=== PATIENT | female | born 1965 | race Caucasian/White ===

== ENCOUNTER 2023-06-10 10:47 | Observation (INO) | payer MEDICARE ==
[2023-06-10] MEDS ORDERED: SODIUM CHLORIDE 0.9% 1,000 ML IV STA (10:58)
[2023-06-10 11:15] LABS: Basophils # (A) 0.1 k/uL (0-0.2); Basophils % (A) 1 %; Eosinophils # (A) 0.8 k/uL (0-0.7); Eosinophils % (A) 9 %; HCT 47.3 % (34.0-46.0); Lymphocytes # (A) 2.7 k/uL (1.0-4.8); Lymphocytes % (A) 30 %; MCH 29.7 pg (25.0-35.0); MCHC 33.8 g/dL (31.0-37.0); MCV 88.1 fL (80.0-100.0); Mean Platelet Volume 7.9; Monocytes # (A) 0.4 k/uL (0-1.0); Monocytes % (A) 4 %; Neutrophils % (A) 55 %; Platelet Count 233 k/uL (150-450); RBC 5.37 m/uL (3.80-5.40); RDW 12.9 % (11.5-15.5); WBC 9.1 k/uL (3.8-10.6)
--- NOTE | 2023-06-10 11:21 | ED ---
General Adult HPI - General Chief complaint: Abdominal Pain Stated complaint: Abd Pain Time Seen by Provider: 06/10/23 10:49 Source: patient Mode of arrival: EMS Limitations: no limitations - History of Present Illness Initial comments: Dictation was produced using [employer] dictation software. please excuse any grammatical, word or spelling errors. Chief Complaint: 57-year-old female presents to the ER for nausea vomiting diarrhea History of Present Illness: 57-year-old female she has been having acute on chronic nausea vomiting diarrhea. She has history of dyslipidemia hypertension. She was seen by the specialist recently and had an x-ray and some prescriptions for some medications to alleviate her symptoms. States that her symptoms have been progressively worsening. She does complain of constitutional symptoms. Denies any abdominal pain. The ROS documented in this emergency department record has been reviewed and c onfirmed by me. Those systems with pertinent positive or negative responses have been documented in the HPI. All other systems are other negative and/or noncontributory. - Related Data Allergies Allergy/AdvReac Type Severity Reaction Status Date / Time Penicillins Allergy Rash/Hives Verified 06/10/23 10:57 Sulfa (Sulfonamide Allergy Rash/Hives Verified 06/10/23 10:57 Antibiotics) Review of Systems ROS Statement: Those systems with pertinent positive or pertinent negative responses have been documented in the HPI. ROS Other: All systems not noted in ROS Statement are negative. Past Medical History Past Medical History: Hyperlipidemia, Hypertension History of Any Multi-Drug Resistant Organisms: None Reported Past Surgical History: Cholecystectomy, Hernia Repair, Orthopedic Surgery Past Psychological History: No Psychological Hx Reported Smoking Status: Vaper Past Alcohol Use History: None Reported Past Drug Use History: None Reported General Exam - General Exam Comments Initial Comments: PHYSICAL EXAM: General Impression: Alert and oriented x3, not in acute distress HEENT: Normocephalic atraumatic, extra-ocular movements intact, pupils equal and reactive to light bilaterally, mucous membranes moist. Cardiovascular: Heart regular rate and rhythm Chest: Able to complete full sentences, no retractions, no tachypnea Abdomen: abdomen soft, non-tender, non-distended, no organomegaly Musculoskeletal: Pulses present and equal in all extremities, no peripheral edema Motor: no focal deficits noted Neurological: CN II-XII grossly intact, no focal motor or sensory deficits noted Skin: Intact with no visualized rashes Psych: Normal affect and mood Limitations: no limitations Course Vital Signs 06/10/23 06/10/23 10:51 10:56 Temperature 99.1 F Pulse Rate 69 65 Respiratory 20 20 Rate Blood Pressure 147/83 134/86 O2 Sat by Pulse 98 98 Oximetry Medical Decision Making - Medical Decision Making Was pt. sent in by a medical professional or institution (, PA, MOBILE HOME TECHNICIAN, urgent care, hospital, or [place] health care facility...) When possible be specific @ -No Did you speak to anyone other than the patient for history (EMS, parent, family, police, friend...)? What history was obtained from this source @ -No Did you review nursing and triage notes (agree or disagree)? Why? @ -I reviewed and agree with nursing and triage notes Were old charts reviewed (outside hosp., previous admission, EMS record, old EK G, old radiological studies, urgent care reports/EKG's, [place] health care facility records)? Report findings @ -No old charts were reviewed Differential Diagnosis (chest pain, altered mental status, abdominal pain women, abdominal pain men, vaginal bleeding, musculoskeletal, weakness, fever, dyspnea, syncope, headache, dizziness, GI bleed, back pain, seizure, CVA, palpatations, mental health)? @ -Differential Abdominal Pain Women: Appendicitis, Cholecystitis, diverticulosis, ischemic bowel, pancreatitis, hepatitis, UTI, gastroenteritis, AAA, incarcerated hernia, bowel obstruction, constipation, inflammatory bowel, hepatitis, peptic ulcer disease, splenic infarction, perforated viscus, vulvitis, ovarian torsion, PID, kidney stone, placenta abruption, this is not meant to be an all-inclusive list EKG interpreted by me (3pts min.). @ -My EKG interpretation: Ventricular rate 65, sinus rhythm,. 160, QRS 11, QTC 41. No CA prolongation, no QTC prolongation, no ST or T-wave changes noted. Overall, this EKG is unremarkable X-rays interpreted by me (1pt min.). @ -None done CT interpreted by me (1pt min.). @ -Computed tomography scan of the abdomen shows no acute processes U/S interpreted by me (1pt. min.). @ -None done What testing was considered but not performed or refused? (CT, X-rays, U/S, labs)? Why? @ -None What meds were considered but not given or refused? Why? @ -None Did you discuss the management of the patient with other professionals (professionals i.e. , PA, MOBILE HOME TECHNICIAN, lab, RT, psych nurse, bilingual social worker, property economist, teacher, aeronautical engineering officer, case operator)? Give summary @ -Discussed with Dr. Solo for admission Was smoking cessation discussed for >3mins.? @ -No Was critical care preformed (if so, how long)? @ -No Were there social determinants of health that impacted care today? How? (Homelessness, low income, unemployed, alcoholism, drug addiction, transportat ion, low edu. Level, literacy, decrease access to med. care, alf, rehab)? @ -No Was there de-escalation of care discussed even if they declined (Discuss DNR or withdrawal of care, Hospice)? DNR status @ -No What co-morbidities impacted this encounter? (DM, HTN, Smoking, COPD, CAD, Cancer, CVA, ARF, Chemo, Hep., AIDS, mental health diagnosis, sleep apnea, morbid obesity)? @ -None Was patient admitted / discharged? Hospital course, mention meds given and route, prescriptions, significant lab abnormalities, going to OR and other pertinent info. @ -57-year-old female presents to the emergency room for nausea and vomiting. Secured on chronic. Vital signs are stable. Laboratory evaluation is unremarkable. Imaging studies shows no obvious cause of patient's nausea and vomiting. Of note radiology read, and of mediastinal fullness. Disposition options are discussed with patient and she does not for comfortable being discharged given the progression and intensity of her symptoms. Patient given antiemetics so persistent symptoms. Patient be admitted to observation. Undiagnosed new problem with uncertain prognosis? @ -No Drug Therapy requiring intensive monitoring for toxicity (Heparin, Nitro, Insulin, Cardizem)? @ -No Were any procedures done? @ -No Diagnosis/symptom? Acute, or Chronic, or Acute on Chronic? Uncomplicated (without systemic symptoms) or Complicated (systemic symptoms)? @ -Intractable nausea Side effects of treatment? @ -No Exacerbation, Progression, or Severe Exacerbation? @ -No Poses a threat to life or bodily function? How? (Chest pain, USA, NC, pneumonia, PE, COPD, DKA, ARF, appy, cholecystitis, CVA, Diverticulitis, Homicidal, Suicidal, threat to staff... and all critical care pts) @ -No - Lab Data Result diagrams: 06/10/23 11:06 06/10/23 11:06 Lab Results 06/10/23 06/10/23 06/10/23 Range/Units 11:06 11:06 11:13 WBC 9.1 (3.8-10.6) k/uL RBC 5.37 (3.80-5.40) m/uL Hgb 16.0 (11.4-16.0) gm/dL Hct 47.3 H (34.0-46.0) % MCV 88.1 (80.0-100.0) fL MCH 29.7 (25.0-35.0) pg MCHC 33.8 (31.0-37.0) g/dL RDW 12.9 (11.5-15.5) % Plt Count 233 (150-450) k/uL MPV 7.9 Neutrophils % 55 % Lymphocytes % 30 % Monocytes % 4 % Eosinophils % 9 % Basophils % 1 % Neutrophils # 5.0 (1.3-7.7) k/uL Lymphocytes # 2.7 (1.0-4.8) k/uL Monocytes # 0.4 (0-1.0) k/uL Eosinophils # 0.8 H (0-0.7) k/uL Basophils # 0.1 (0-0.2) k/uL Sodium 141 (137-145) mmol/L Potassium 4.5 (3.5-5.1) mmol/L Chloride 106 (98-107) mmol/L Carbon Dioxide 24 (22-30) mmol/L Anion Gap 11 mmol/L BUN 15 (7-17) mg/dL Creatinine 0.85 (0.52-1.04) mg/dL Est GFR (CKD-EPI)AfAm 87 (>60 ml/min/1.73 sqM) Est GFR (CKD-EPI)NonAf 76 (>60 ml/min/1.73 sqM) Glucose 100 H (74-99) mg/dL Calcium 10.4 H (8.4-10.2) mg/dL Total Bilirubin 0.6 (0.2-1.3) mg/dL AST 41 H (14-36) U/L ALT 42 H (4-34) U/L Alkaline Phosphatase 99 (38-126) U/L Total Protein 8.3 H (6.3-8.2) g/dL Albumin 4.9 (3.5-5.0) g/dL Lipase 76 (23-300) U/L Urine Color Yellow Urine Appearance Clear (Clear) Urine pH 7.5 (5.0-8.0) Ur Specific Hyder 1.015 (1.001-1.035) Urine Protein Trace H (Negative) Urine Glucose (UA) Negative (Negative) Urine Ketones Negative (Negative) Urine Blood Trace H (Negative) Urine Nitrite Negative (Negative) Urine Bilirubin Negative (Negative) Urine Urobilinogen <2.0 (<2.0) mg/dL Ur Leukocyte Esterase Negative (Negative) Urine RBC 6 H (0-5) /hpf Urine WBC 2 (0-5) /hpf Ur Squamous Epith Cells 1 (0-4) /hpf Urine Mucus Rare H (None) /hpf Disposition Clinical Impression: Intractable nausea and vomiting Disposition: ADMITTED IP TO THIS [facility] Condition: Fair Referrals: Nonstaff,Physician [Primary Care Provider] - 1-2 days Decision Time: 12:30
[2023-06-10 11:33] LABS: Appearance,Urine Clear (Clear); Bilirubin,Urine Negative (Negative); Blood,Urine Trace (Negative); Color,Urine Yellow; Glucose,Urine (UA) Negative (Negative); Ketones,Urine Negative (Negative); Leukocyte Esterase,Urine Negative (Negative); Mucus,Urine Rare /hpf; Nitrite,Urine Negative (Negative); PH, Urine 7.5 (5.0-8.0); Protein,Urine Trace (Negative); RBC,Urine 6 /hpf (0-5); Specific Gravity,Urine 1.015 (1.001-1.035); Squamous Epithelial Cell,Urine 1 /hpf (0-4); Urobilinogen,Urine <2.0 mg/dL (<2.0); WBC,Urine 2 /hpf (0-5)
[2023-06-10] MEDS ORDERED: ONDANSETRON 4 MG/2 ML VIAL IVP STA (11:33)
[2023-06-10 11:40] LABS: ALT 42 U/L (4-34); AST 41 U/L (14-36); African American GFR (CKD) 87 (>60 ml/min/1.73 sqM); Albumin 4.9 g/dL (3.5-5.0); Alkaline Phosphatase 99 U/L (38-126); Anion Gap 11 mmol/L; Blood Urea Nitrogen 15 mg/dL (7-17); Calcium 10.4 mg/dL (8.4-10.2); Carbon Dioxide 24 mmol/L (22-30); Chloride 106 mmol/L (98-107); Glucose 100 mg/dL (74-99); Lipase 76 U/L (23-300); Non-African American GFR(CKD) 76 (>60 ml/min/1.73 sqM); Potassium 4.5 mmol/L (3.5-5.1); Sodium 141 mmol/L (137-145); Total Bilirubin 0.6 mg/dL (0.2-1.3); Total Protein 8.3 g/dL (6.3-8.2)
--- NOTE | 2023-06-10 12:25 | CT ---
EXAMINATION TYPE: CT abdomen pelvis w con CT DLP: 1593.4 mGycm, Automated exposure control for dose reduction was used. DATE OF EXAM: 06/10/2023 12:15 PM COMPARISON: None CLINICAL INDICATION:Female, 57 years old with history of abdominal pain; nausea, vomiting, diarrhea TECHNIQUE: Axial CT of the abdomen and pelvis. Sagittal and coronal reformats were created on a [employer] workstation. Contrast used:100 mL of Isovue 300 with IV Contrast, (none if empty) Oral contrast used: without Oral Contrast (none if empty) FINDINGS: LOWER CHEST: There is indeterminate fullness within the right pulmonary hilum and subcarinal region w hich is only partially visualized. Exact structure/etiology uncertain. ABDOMEN LIVER: Diffusely hypoattenuating parenchyma. GALLBLADDER AND BILE DUCTS: The gallbladder is surgically absent. PANCREAS: Unremarkable. SPLEEN: Unremarkable. ADRENAL GLANDS: Unremarkable. KIDNEYS AND URETERS: Bilateral simple appearing renal cysts. No evidence of hydronephrosis or renal c alculus. The ureters are unremarkable. PELVIS BLADDER: Unremarkable REPRODUCTIVE: Unremarkable. ABDOMEN & PELVIS STOMACH AND BOWEL: No evidence of bowel obstruction. Scattered colonic diverticula. PERITONEUM/RETROPERITONEUM: No evidence of pneumoperitoneum or free fluid. VASCULATURE: No evidence of aortic aneurysm. MUSCULOSKELETAL: No acute osseous abnormalities. Mild disc degeneration changes are present throughou t the thoracolumbar spine. LYMPH NODES: No gross evidence for lymphadenopathy. SOFT TISSUE/ABDOMINAL WALL: Unremarkable IMPRESSION: 1. No evidence for acute abdominal process. No evidence for bowel obstruction. 2. Right pulmonary hilum and subcarinal fullness partially visualized. Consider CT chest with IV con trast for complete evaluation of the lungs throughout underlying lymphadenopathy. 3. Hepatic steatosis. 4. Colonic diverticulosis.
[2023-06-10] MEDS ORDERED: NALOXONE 0.4 MG/ML 1 ML VIAL IV PRN (12:46)
[2023-06-10] MEDS ORDERED: ONDANSETRON 4 MG/2 ML VIAL IVP PRN (12:46)
[2023-06-10] MEDS ORDERED: KETOROLAC 15 MG/ML 1 ML VIAL IVP STA (13:28)
[2023-06-10] MEDS: SODIUM CHLORIDE 0.9% 1,000 ML IV SCH (13:34)
[2023-06-10] MEDS ORDERED: RX INFO: IV CONTRAST WAS GIVEN 1 EACH MISC MISCELLANE PRN (15:51)
[2023-06-10] MEDS ORDERED: ONDANSETRON 4 MG TAB PO PRN (15:52)
[2023-06-10 16:36] LABS: ALT 38 U/L (4-34); AST 37 U/L (14-36); African American GFR (CKD) >90 (>60 ml/min/1.73 sqM); Albumin 4.1 g/dL (3.5-5.0); Albumin/Globulin Ratio 1.4; Alkaline Phosphatase 87 U/L (38-126); Anion Gap 6 mmol/L; Blood Urea Nitrogen 12 mg/dL (7-17); Calcium 9.2 mg/dL (8.4-10.2); Carbon Dioxide 25 mmol/L (22-30); Chloride 107 mmol/L (98-107); Glucose 87 mg/dL (74-99); Non-African American GFR(CKD) 80 (>60 ml/min/1.73 sqM); Potassium 4.1 mmol/L (3.5-5.1); Sodium 138 mmol/L (137-145); Total Bilirubin 0.5 mg/dL (0.2-1.3); Total Protein 7.1 g/dL (6.3-8.2)
[2023-06-10] MEDS ORDERED: RIFAXIMIN 550 MG TABLET PO SCH (17:00)
[2023-06-10] MEDS ORDERED: PROCHLORPERAZINE INJ 10 MG/2 ML VIAL IVP PRN (17:16)
--- NOTE | 2023-06-10 17:18 | P.HPIM ---
History of Present Illness H&P Date: 06/10/23 Chief Complaint: Nausea, vomiting 57-year-old woman with medical history of bipolar disorder, marijuana use, nicotine use, hypothyroidism, hypertension presented for evaluation of nausea, vomiting, diarrhea. Patient says that she's had symptoms of the last 6 months starting with tenesmus and diarrhea, but over the last week she started to develop increased nausea, vomiting. Her emesis is mostly bilious. She is able to eat food intermittently, but now is up to vomiting 3 times a day. She's had nausea for approximately 2 months, has been treating this with marijuana use. Notably, her nausea started prior to her marijuana use. Her only medication changes in the last 4 months included the addition of 2 bipolar disease medications including asenapine and lamotrigine. She denies fevers, chills, chest pain, palpitations, syncope, presyncope, dyspnea, abdominal pain, constipation, dysuria, dyschezia, numbness/weakness of extremities. She does report cough with sputum production which is predominantly white. In the emergency room, patient was afebrile, 147/83, heart rate 69, 98% on room air. CBC is unremarkable. Basic metabolic panel is unremarkable. Liver function test show mild elevation of AST/ALT to 41/42, elevation of total protein to 8.3. UA shows trace protein, trace blood, 6 red blood cells. Lipase was 76. Repeat BMP demonstrated improvement of calcium from 10.4-9.2, AST of 37, ALT of 38, total protein of 7.1. Abdomen/pelvis CT showed no evidence for an acute abdominal process, did show hepatic steatosis and colonic diverticulosis, as well as right pulmonary hilum and subcarinal fullness partially visualized. EKG shows normal sinus rhythm with normal axis, no evidence of ischemia. Case was discussed the emergency room provider incision was made to admit the patient to observation for nausea. All Systems reviewed and pertinent positives and negatives noted in HPI, all other symptoms are negative Gen: in no apparent distress, resting comfortably in bed Eyes: PERRL, no scleral injection or icterus HENT: normocephalic, atraumatic, good hearing acuity, moist mucous membranes Neck: no tracheal deviation, full range of motion Resp: good air exchange, breathing comfortably with no accessory muscle use, no tactile fremitus, clear to auscultation bilaterally CVS: good distal perfusion x 4, no pitting edema, regular rate and rhythm without murmurs GI: soft, NTTP, ND, no hepatosplenomegaly : no suprapubic tenderness, no CVAT, isaacs catheter not present MSK: no clubbing, no cyanosis, no noted contractures of extremities Skin: no noted rashes, petechiae; temperature of skin is appropriate Neuro: moving all extremities without signs of weakness, CN II-XII intact Psych: cooperative, euthymic mood, insight and judgment intact Labs and imaging as above Assessment: Nausea, vomiting, diarrhea Cough with sputum production Bipolar disorder Hypothyroidism Hypertension Plan: Vital signs reviewed and noted in the HPI Lab work reviewed and noted in the HPI EKG and CXR are personally interpreted and noted in the HPI Case was discussed with the Emergency Room provider and decision was made to admit the patient for nausea Nausea control: 4 mg Zofran when necessary every 4 hours IV for nausea, Compazine 10 mg IV push every 6 hours when necessary IV fluids: Normal saline at 75 mL per hour Obtain CT of the chest with IV contrast Resume patient's levothyroxine, amlodipine, saphris, lamotrigine Stool culture, stool lactoferrin Patient is full code Past Medical History Past Medical History: Hyperlipidemia, Hypertension History of Any Multi-Drug Resistant Organisms: None Reported Past Surgical History: Cholecystectomy, Hernia Repair, Orthopedic Surgery Past Psychological History: No Psychological Hx Reported Smoking Status: Vaper Past Alcohol Use History: None Reported Past Drug Use History: None Reported Medications and Allergies Home Medications Medication Instructions Recorded Confirmed Type Asenapine Maleate [Saphris] 10 mg SUBLINGUAL BID 06/10/23 06/10/23 History Cholecalciferol [Vitamin D3 (25 25 mcg PO DAILY 06/10/23 06/10/23 History Mcg = 1000 Iu)] Cyanocobalamin (Vitamin B-12) 1,000 mcg PO DAILY 06/10/23 06/10/23 History [Vitamin B-12] Dicyclomine [Bentyl] 20 mg PO BID 06/10/23 06/10/23 History Levothyroxine Sodium [Synthroid] 125 mcg PO DAILY 06/10/23 06/10/23 History Multivitamins, Thera [Multivitamin 1 tab PO DAILY 06/10/23 06/10/23 History (formulary)] Ondansetron [Zofran] 4 mg PO Q6H PRN 06/10/23 06/10/23 History Rifaximin [Xifaxan] 550 mg PO TID 06/10/23 06/10/23 History amLODIPine [Norvasc] 5 mg PO DAILY 06/10/23 06/10/23 History lamoTRIgine [LaMICtal] 100 mg PO DAILY 06/10/23 06/10/23 History Allergies Allergy/AdvReac Type Severity Reaction Status Date / Time Penicillins Allergy Rash/Hives Verified 06/10/23 13:13 Sulfa (Sulfonamide Allergy Rash/Hives Verified 06/10/23 13:13 Antibiotics) Physical Exam Osteopathic Statement: *. No significant issues noted on an osteopathic structural exam other than those noted in the History and Physical/Consult. Vitals: Vital Signs Temp Pulse Resp BP Pulse Ox 06/10/23 16:15 65 16 140/68 98 06/10/23 15:00 65 16 132/89 98 06/10/23 13:35 67 20 137/89 98 06/10/23 10:56 65 20 134/86 98 06/10/23 10:51 99.1 F 69 20 147/83 98 Intake and Output 06/10/23 06/10/23 06/10/23 06:59 14:59 22:59 Other: Weight 97.522 kg Results CBC & Chem 7: 06/10/23 11:06 06/10/23 16:18 Labs: Abnormal Lab Results - Last 24 Hours (Table) 06/10/23 06/10/23 06/10/23 Range/Units 11:06 11:06 11:13 Hct 47.3 H (34.0-46.0) % Eosinophils # 0.8 H (0-0.7) k/uL Glucose 100 H (74-99) mg/dL Calcium 10.4 H (8.4-10.2) mg/dL AST 41 H (14-36) U/L ALT 42 H (4-34) U/L Total Protein 8.3 H (6.3-8.2) g/dL Urine Protein Trace H (Negative) Urine Blood Trace H (Negative) Urine RBC 6 H (0-5) /hpf Urine Mucus Rare H (None) /hpf 09/05/23 Range/Units 16:18 Hct (34.0-46.0) % Eosinophils # (0-0.7) k/uL Glucose (74-99) mg/dL Calcium (8.4-10.2) mg/dL AST 37 H (14-36) U/L ALT 38 H (4-34) U/L Total Protein (6.3-8.2) g/dL Urine Protein (Negative) Urine Blood (Negative) Urine RBC (0-5) /hpf Urine Mucus (None) /hpf
--- NOTE | 2023-06-10 17:24 | CT ---
EXAMINATION TYPE: CT chest w con DATE OF EXAM: 06/10/2023 COMPARISON: None HISTORY: 57-year-old female mediastinal mass TECHNIQUE: Contiguous axial scanning of the chest after the administration of 100 mL of Isovue 300. Coronal/sagittal reconstructions performed. CT DLP: 550.1mGycm. Automatic exposure control utilized for a dose reduction. FINDINGS: The heart is normal size. There is a small pericardial effusion measuring up to 9 mm thick. Aorta normal caliber with a short vessel branching anatomy. There is mediastinal lymphadenopathy measuring up to 3.4 x 2.4 cm lower left paratracheal, 2.3 cm rig ht paratracheal, 3.1 cm AP window, 2.4 cm subcarinal, 2.4 cm left hilum, a 2.6 cm right hilum. Platelike thickening along the minor fissure probably perifissural atelectasis. Some mild groundglass change centrally in the right upper lobe, axially 24 is nonspecific and should be reassessed on follow-up. Some additional strandy areas of atelectasis in the lower lungs. Otherwise, no consolidation or pleural effusion. Visualized upper abdomen shows severe fatty infiltration of the liver. Abdomen pelvis Helms described on recent separate report. Bones: No osseous destructive process. [facility] within the lower thoracic spine. IMPRESSION: 1. Mediastinal and bilateral hilar lymphadenopathy measuring up to 3.4 cm. Differential consideration s include lymphoproliferative disorder, lymphoma, metastatic disease, sarcoidosis, granulomatous dise ase, atypical fungal/mycobacterial infections. Appropriate further evaluation and management recommen ded. 2. Some mild groundglass density centrally in the right upper lobe is nonspecific and could represent a small infectious/inflammatory focus. Reassess at a 3 month follow-up. 3. Small pericardial effusion measuring 9 mm thick. 4. Severe hepatic steatosis.
[2023-06-10] MEDS: ASENAPINE 5 MG TAB SUBLINGUAL SCH (20:26)
[2023-06-10] MEDS: DICYCLOMINE 20 MG TAB PO SCH (20:26)
--- NOTE | 2023-06-11 01:33 | P.CNPUL ---
History of Present Illness Consult date: 06/11/23 Requesting physician: Nisha Blum Reason for consult: abnormal CXR/CT Chief complaint: Nausea and vomiting History of present illness: I am seeing this patient in new consultation today 06/11/2023 for mediastinal and bilateral hilar lymphadenopathy incidentally found on chest CT. Patient is a 57-year-old white female with past medical history significant for hypertension, hyperlipidemia, hypothyroidism, bipolar, and is a ex-tobacco smoker. She recently moved to [place] from [place], and her PCP is a Dr. Alford out of [place]. Patient actually came to the emergency room ye complaining of nausea and vomiting that started over the last couple weeks. She has about 3 episodes of emesis per day, without relation to meals, denies any significant weight loss. Denies any hematemesis. Admits intermittent diarrhea that started last July. States that she had a colonoscopy 09/10/2022, which showed colitis. She denies any abdominal pain, bloody bowel movements. During the patient's workup for her nausea and vomiting, she had abdominal CT which did not show any significant acute intra- abdominal process. It did show right pulmonary hilar and subcarinal fullness. A follow-up chest CT showed mediastinal and bilateral hilar lymphadenopathy measuring up to 3.4 cm. There was also mild groundglass density within the right upper lobe, small pericardial effusion measuring 9 mm, and severe hepatic Steatosis. Possible differential includes lymphoproliferative disorders, lymphoma, metastatic disease, sarcoidosis, granulomatous disease, etc. Patient states that she has been told about her lymphadenopathy before, and has been following with an oncologist out of [place]. Unsure of his name. She has never had any biopsies. Admits night sweats and chills over the last 6 months. Also, states that over the last 6 months she's had some midsternal chest pressure that is intermittent, nonradiating, and self resolving. Denies shortness of breath, cough, hemoptysis. Denies weight loss. Denies personal or familial history of cancer. Patient is currently sitting up in bed, on room air, in no acute distress. CBC on arrival was unremarkable. BMP on arrival was also unremarkable. No IV maintenance fluids currently infusing. Vital signs are stable. Review of Systems REVIEW OF SYSTEMS: CONSTITUTIONAL: Denies any recent significant weight loss or weight gain. Admits night sweats, chills. EYES: Denies change in vision. EARS, NOSE, MOUTH, THROAT: Denies headaches, denies sore throat. CARDIOVASCULAR: Denies radiating chest pain, palpitations, lightheadedness, syncopal episodes, lower extremity swelling. RESPIRATORY: Denies shortness of breath, cough, congestion or hemoptysis. GASTROINTESTINAL: See HPI GENITOURINARY: Denies hematuria, denies infections. MUSKULOSKELETAL: Denies pain, denies swelling. INTEGUMENTARY: Denies rash, denies eczema. NEUROLOGICAL: Denies recent memory loss, no recent seizure activity. PSYCHIATRIC: Denies anxiety, denies depression. HEMATOLOGIC/LYMPHATIC: Denies anemia, denies enlarged lymph node Constitutional: Reports chills Past Medical History Past Medical History: Hyperlipidemia, Hypertension History of Any Multi-Drug Resistant Organisms: None Reported Past Surgical History: Cholecystectomy, Hernia Repair, Orthopedic Surgery Past Psychological History: No Psychological Hx Reported Smoking Status: Vaper Past Alcohol Use History: None Reported Past Drug Use History: None Reported Medications and Allergies Home Medications Medication Instructions Recorded Confirmed Type Asenapine Maleate [Saphris] 10 mg SUBLINGUAL BID 06/10/23 06/10/23 History Cholecalciferol [Vitamin D3 (25 25 mcg PO DAILY 06/10/23 06/10/23 History Mcg = 1000 Iu)] Cyanocobalamin (Vitamin B-12) 1,000 mcg PO DAILY 06/10/23 06/10/23 History [Vitamin B-12] Dicyclomine [Bentyl] 20 mg PO BID 06/10/23 06/10/23 History Levothyroxine Sodium [Synthroid] 125 mcg PO DAILY 06/10/23 06/10/23 History Multivitamins, Thera [Multivitamin 1 tab PO DAILY 06/10/23 06/10/23 History (formulary)] Ondansetron [Zofran] 4 mg PO Q6H PRN 06/10/23 06/10/23 History Rifaximin [Xifaxan] 550 mg PO TID 06/10/23 06/10/23 History amLODIPine [Norvasc] 5 mg PO DAILY 06/10/23 06/10/23 History lamoTRIgine [LaMICtal] 100 mg PO DAILY 06/10/23 06/10/23 History Allergies Allergy/AdvReac Type Severity Reaction Status Date / Time Penicillins Allergy Rash/Hives Verified 06/10/23 13:13 Sulfa (Sulfonamide Allergy Rash/Hives Verified 06/10/23 13:13 Antibiotics) Physical Exam Vitals: Vital Signs Temp Pulse Resp BP Pulse Ox 06/10/23 22:00 70 18 134/86 96 06/10/23 21:15 68 17 116/92 97 06/10/23 19:00 71 18 102/86 96 06/10/23 18:00 69 16 102/86 98 06/10/23 17:00 65 20 146/95 98 06/10/23 16:15 65 16 140/68 98 06/10/23 15:00 65 16 132/89 98 06/10/23 13:35 67 20 137/89 98 06/10/23 10:56 65 20 134/86 98 06/10/23 10:51 99.1 F 69 20 147/83 98 Intake and Output 06/10/23 06/10/23 06/11/23 14:59 22:59 06:59 Other: Weight 97.522 kg GENERAL EXAM: Alert, 57-year-old white female appearing stated age, comfortable in no apparent distress. HEAD: Normocephalic and atraumatic EYES: Normal reaction of pupils, equal size. NOSE: Clear with pink turbinates. THROAT: No erythema or exudates. NECK: No masses, no JVD. No significant adenopathy CHEST: No chest wall deformity. LUNGS: Equal air entry with no crackles, wheeze, rhonchi or dullness. On room air. No conversational dyspnea or accessory muscle use.. CVS: S1 and S2 normal with no audible murmur, regular rhythm. No extra heart sounds ABDOMEN: No hepatosplenomegaly or masses, active bowel sounds, no guarding or rigidity. SPINE: No scoliosis or deformity SKIN: No rashes CENTRAL NERVOUS SYSTEM: No focal deficits, tone is normal in all 4 extremities. EXTREMITIES: There is no peripheral edema, clubbing, or cyanosis. Peripheral pulses are intact. Results - Laboratory Findings CBC and BMP: 06/10/23 11:06 06/10/23 16:18 Abnormal lab findings: Abnormal Labs 06/10/23 06/10/23 06/10/23 11:06 11:06 11:13 Hct 47.3 H Eosinophils # 0.8 H Glucose 100 H Calcium 10.4 H AST 41 H ALT 42 H Total Protein 8.3 H Urine Protein Trace H Urine Blood Trace H Urine RBC 6 H Urine Mucus Rare H 06/10/23 16:18 Hct Eosinophils # Glucose Calcium AST 37 H ALT 38 H Total Protein Urine Protein Urine Blood Urine RBC Urine Mucus - Diagnostic Findings Chest x-ray: image reviewed CT scan - chest: image reviewed Assessment and Plan Assessment: Mediastinal and bilateral hilar lymphadenopathy. Chest CT mediastinal and bilateral hilar lymphadenopathy measuring up to 3.4 cm. There was also mild groundglass density within the right upper lobe, small pericardial effusion measuring 9 mm, and severe hepatic steatosis. Possible differential includes lymphoproliferative disorders, lymphoma, metastatic disease, sarcoidosis, granulomatous disease, etc. Small pericardial effusion, as reported on CT Hepatic steatosis Nausea and vomiting, under investigation Chronic diarrhea History of colitis Hyperlipidemia Benign essential hypertension Hypothyroidism Bipolar disorder Chronic ongoing nicotine dependence. Patient quit smoking cigarettes about one year ago, and transitioned to vape pen. Plan: Patient's medications, labs, and imaging reviewed On room air Patient will likely need endobronchial ultrasound biopsy of her mediastinal/hi lar adenopathy, I will discuss this with Dr. Briggs in the morning. Recommended follow up with her established oncologist on discharge Nausea and vomiting better controlled with Compazine and when necessary Zofran Tolerating clear liquids Normal saline to be infused at 75 miles per hour We will continue to follow, and further recommendations are forthcoming I have personally seen and examined the patient, performed the documentation and the assessment and plan as written. Number of minutes spent on the visit:20 . Time with Patient: Greater than 30
[2023-06-11] MEDS ORDERED: MORPHINE SULFATE 4 MG/ML SYRINGE IVP STA (02:03)
[2023-06-11] MEDS: SODIUM CHLORIDE 0.9% 1,000 ML IV SCH (04:34)
[2023-06-11] MEDS ORDERED: LEVOTHYROXINE 125 MCG TAB PO SCH (06:30)
[2023-06-11] MEDS ORDERED: CYANOCOBALAMIN 500 MCG TAB PO SCH (09:00)
[2023-06-11] MEDS ORDERED: lamoTRIgine 100 MG TAB PO SCH (09:00)
[2023-06-11] MEDS ORDERED: MULTIVITAMINS, THERA 1 EACH TAB PO SCH (09:00)
[2023-06-11] MEDS ORDERED: CHOLECALCIFEROL 25 MCG (1000 IU) TABLET PO SCH (09:00)
[2023-06-11] MEDS ORDERED: amLODIPine 5 MG TAB PO SCH (09:00)
[2023-06-11] MEDS: DICYCLOMINE 20 MG TAB PO SCH (09:15)
[2023-06-11 09:33] VITALS: BP 166/87; PULSE 71; RESP 20; TEMP 98
[2023-06-11] MEDS: ASENAPINE 5 MG TAB SUBLINGUAL SCH (10:11)
--- NOTE | 2023-06-11 11:35 | P.DS ---
Providers Date of admission: 06/10/23 12:46 Expected date of discharge: 06/11/23 Attending physician: Nisha Blum DO Consults: 06/10/23 18:41 Consult Physician Urgent Consulting Provider: Ernesto Briggs Reason/Comments: ct of chest abnormal Do you want consulting provider notified?: Yes, Notify in am Primary care physician: Physician Nonstaff Hospital Course: Assessment: Nausea, vomiting, diarrhea Cough with sputum production Bipolar disorder Hypothyroidism Hypertension Hospital Course: 57-year-old woman with medical history of bipolar disorder, marijuana use, nicotine use, hypothyroidism, hypertension presented for evaluation of nausea, vomiting, diarrhea. In the emergency room, patient was afebrile, 147/83, heart rate 69, 98% on room air. CBC is unremarkable. Basic metabolic panel is unremarkable. Liver function test show mild elevation of AST/ALT to 41/42, elevation of total protein to 8.3. UA shows trace protein, trace blood, 6 red blood cells. Lipase was 76. Repeat BMP demonstrated improvement of calcium from 10.4-9.2, AST of 37, ALT of 38, total protein of 7.1. Abdomen/pelvis CT showed no evidence for an acute abdominal process, did show hepatic steatosis and colonic diverticulosis, as well as right pulmonary hilum and subcarinal fullness partially visualized. EKG shows normal sinus rhythm with normal axis, no evidence of ischemia. Case was discussed the emergency room provider incision was made to admit the patient to observation for nausea. Pt underwent CT chest imaging given findings on CT A/P - this demonstrated mediastinal, hilar, and subcarinal lympadenopathy, as well as GGO in the RUL. Pulmonology was consulted for these findings, and recommended outpatient PET/CT scan followed up with possible biopsy. Pts nausea did improve with anti-emetics, and she was discharged home with anti-emetic scripts and instructions to f/u with pulmonology. I spent 36 minutes coordinating this discharge on 06/11 Gen: in no apparent distress, resting comfortably in bed Eyes: PERRL, no scleral injection or icterus HENT: normocephalic, atraumatic, good hearing acuity, moist mucous membranes Neck: no tracheal deviation, full range of motion Resp: good air exchange, breathing comfortably with no accessory muscle use, no tactile fremitus, clear to auscultation bilaterally CVS: good distal perfusion x 4, no pitting edema, regular rate and rhythm without murmurs GI: soft, NTTP, ND, no hepatosplenomegaly : no suprapubic tenderness, no CVAT, isaacs catheter not present MSK: no clubbing, no cyanosis, no noted contractures of extremities Skin: no noted rashes, petechiae; temperature of skin is appropriate Neuro: moving all extremities without signs of weakness, CN II-XII intact Psych: cooperative, euthymic mood, insight and judgment intact Patient Condition at Discharge: Good Plan - Discharge Summary New Discharge Prescriptions: New Prochlorperazine [Compazine] 10 mg PO Q6H PRN #30 tab PRN Reason: Nausea Metoclopramide HCl [Reglan] 5 mg PO AC-TID PRN #30 tablet PRN Reason: Nausea Continue amLODIPine [Norvasc] 5 mg PO DAILY Dicyclomine [Bentyl] 20 mg PO BID Multivitamins, Thera [Multivitamin (formulary)] 1 tab PO DAILY Cyanocobalamin (Vitamin B-12) [Vitamin B-12] 1,000 mcg PO DAILY Cholecalciferol [Vitamin D3 (25 Mcg = 1000 Iu)] 25 mcg PO DAILY Levothyroxine Sodium [Synthroid] 125 mcg PO DAILY Ondansetron [Zofran] 4 mg PO Q6H PRN PRN Reason: Nausea lamoTRIgine [LaMICtal] 100 mg PO DAILY Asenapine Maleate [Saphris] 10 mg SUBLINGUAL BID Discontinued Rifaximin [Xifaxan] 550 mg PO TID Discharge Medication List Asenapine Maleate [Saphris] 10 mg SUBLINGUAL BID 06/10/23 [History] Cholecalciferol [Vitamin D3 (25 Mcg = 1000 Iu)] 25 mcg PO DAILY 06/10/23 [History] Cyanocobalamin (Vitamin B-12) [Vitamin B-12] 1,000 mcg PO DAILY 06/10/23 [History] Dicyclomine [Bentyl] 20 mg PO BID 06/10/23 [History] Levothyroxine Sodium [Synthroid] 125 mcg PO DAILY 06/10/23 [History] Multivitamins, Thera [Multivitamin (formulary)] 1 tab PO DAILY 06/10/23 [History] Ondansetron [Zofran] 4 mg PO Q6H PRN 06/10/23 [History] amLODIPine [Norvasc] 5 mg PO DAILY 06/10/23 [History] lamoTRIgine [LaMICtal] 100 mg PO DAILY 06/10/23 [History] Metoclopramide HCl [Reglan] 5 mg PO AC-TID PRN #30 tablet 06/11/23 [Rx] Prochlorperazine [Compazine] 10 mg PO Q6H PRN #30 tab 06/11/23 [Rx] Follow up Appointment(s)/Referral(s): Nonstaff,Physician [Primary Care Provider] - 1-2 days Patient Instructions/Handouts: Acute Nausea and Vomiting (DC) Discharge Disposition: HOME SELF-CARE
== END 2023-06-11 11:14 | disposition home or self-care (01) ==
LOC: EC 10:47 → 6NMEDSUR 12:46
PROVIDERS: ADMIT Internal Medicine; ATTEND Internal Medicine
DX: R11.2 Nausea with vomiting, unspecified (principal); R59.0 Localized enlarged lymph nodes; I31.39 Other pericardial effusion (noninflammatory); K76.0 Fatty (change of) liver, not elsewhere classified; E78.5 Hyperlipidemia, unspecified; I10 Essential (primary) hypertension; E03.9 Hypothyroidism, unspecified; F31.9 Bipolar disorder, unspecified; K52.9 Noninfective gastroenteritis and colitis, unspecified; R05.9 Cough, unspecified; F17.290 Nicotine dependence, other tobacco product, uncomplicated; Z79.890 Hormone replacement therapy; Z79.899 Other long term (current) drug therapy; Z88.0 Allergy status to penicillin; Z88.2 Allergy status to sulfonamides
CPT/HCPCS: 96376; 96361 ×2; 96374; 96375 ×2; 99285; 36415; 80053; 83690; 85025; 81001; 87045; 83630; 87046; 71260; 74177; G0378 ×2; J2270; J0780; J2405 ×2; J1885; Q9967